=== PATIENT | female | born 1965 | race American Indian/Alaskan Native ===

== ENCOUNTER 2017-05-26 16:38 | Emergency (ER) | payer OTHER, MEDICAID ==
[2017-05-26 16:43] VITALS: RESP 18; TEMP 98.8
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
--- NOTE | 2017-05-26 17:49 | RAD ---
PROCEDURE: Cervical Spine Radiographs. HISTORY: Pain. COMPARISON: CT cervical spine from 07/23/2016 FINDINGS: BONES: There is normal alignment of the cervical vertebral bodies. Cervical lordosis is maintained. There is no acute fracture. The craniocervical junction is normal. The atlantoaxial joint is normal. DISC SPACES: Status post ACDF at C5-6 and C6-7. There is stable appearance of metallic screws and disc markers. SOFT TISSUES: Normal. No prevertebral soft tissue swelling. OTHER FINDINGS: None. IMPRESSION: Status post ACDF at C5-6 and C6-7, stable appearance of hardware and radiopaque disc markers. No acute findings.
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
[2017-05-26 18:14] VITALS: BP 124/76; PULSE 88
[2017-05-26 18:27] VITALS: O2SAT 100
== END 2017-05-26 18:14 | disposition home or self-care (01) ==
LOC: C.ER 16:38
DX: M54.89 Other dorsalgia (principal); V89.2XXA Person injured in unspecified motor-vehicle accident, traffic, initial encounter

== ENCOUNTER 2017-06-27 11:56 | Emergency (ER) | payer OTHER, MEDICAID ==
[2017-06-27 12:14] VITALS: BP 113/72; PULSE 62; RESP 18; TEMP 98.4; O2SAT 99
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
[2017-06-27] MEDS ORDERED: Oxycodone/Acetaminophen 5/325 mg Tab PO STA (12:40)
[2017-06-27] MEDS ORDERED: Oxycodone/Acetaminophen 5/325 mg Tab ONE (12:45)
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
== END 2017-06-27 15:16 | disposition home or self-care (01) ==
LOC: C.ER 11:56
DX: M54.5 Low back pain (principal)

== ENCOUNTER 2017-09-19 11:33 | Emergency (ER) | payer MEDICAID, OTHER ==
[2017-09-19 11:43] VITALS: BMI 21.5
[2017-09-19 11:48] VITALS: RESP 18; O2SAT 98
[2017-09-19] MEDS ORDERED: Lidocaine 5% Patch TD STA (12:15)
[2017-09-19] MEDS ORDERED: Lidocaine 5% Patch TD ONE (12:38)
--- NOTE | 2017-09-19 13:35 | C.PDOC ---
History Of Present Illness 52 year old female, whose PMHx includes back problems and PSHx includes spinal surgeries, presents to the ED for evaluation of upper back pain which began earlier today. Patient states she was at a doctor's office and was sitting down for a long period of time. Patient notes she often experiences similar back pain after sitting for a prolonged period of time. Patient denies fever, chills , headache, neck pain, extremity numbness/weakness, or direct trauma/injury to the affected area. Time Seen by Provider: 09/19/17 12:01 Chief Complaint (Nursing): Back Pain History Per: Patient History/Exam Limitations: no limitations Onset/Duration Of Symptoms: Hrs Current Symptoms Are (Timing): Still Present Quality Of Discomfort: "Pain" Previous Symptoms: Back Pain. denies: Neck Pain Associated Symptoms: denies: Incontinence, New Weakness, New Numbness Additional History Per: Patient Past Medical History Reviewed: Historical Data, Nursing Documentation, Vital Signs Vital Signs: Last Vital Signs Temp 97.6 F 09/19/17 13:39 Pulse 60 09/19/17 13:39 Resp 18 09/19/17 13:39 BP 109/75 09/19/17 13:39 Pulse Ox 98 09/19/17 14:04 - Medical History PMH: Back Problems Surgical History: Back Surgery Family History: States: Unknown Family Hx - Social History Hx Tobacco Use: Yes Hx Alcohol Use: No Hx Substance Use: No - Immunization History Hx Tetanus Toxoid Vaccination: No Hx Influenza Vaccination: No Hx Pneumococcal Vaccination: No Review Of Systems Constitutional: Negative for: Fever, Chills Musculoskeletal: Positive for: Back Pain (upper ). Negative for: Neck Pain Neurological: Negative for: Weakness, Numbness, Headache Physical Exam - Physical Exam Appears: Non-toxic, No Acute Distress Skin: Normal Color, Warm, Dry Neck: Normal ROM, No Midline Cervical Tenderness, No Paracervical Tenderness, Supple Back: No Vertebral Tenderness Extremity: Normal ROM, Tenderness (to bilateral shoulders on palpation ), Capillary Refill (less than 2 seconds ) Neurological/Psych: Oriented x3, Normal Speech, Normal Cognition Gait: Steady ED Course And Treatment O2 Sat by Pulse Oximetry: 98 (on RA) Pulse Ox Interpretation: Normal Medical Decision Making Medical Decision Making: Progress: Lidoderm TD, Flexeril PO, and Tylenol PO administered. pt reports feeling much better, appears much more comfortable, will d/c Disposition Counseled Patient/Family Regarding: Diagnosis, Need For Followup, Rx Given - Disposition Disposition: HOME/ ROUTINE Disposition Time: 13:32 Condition: IMPROVED Additional Instructions: Please use muscle relaxants every 8 hours if needed for spasm; they make you drowsy so no driving or operating machinery when using them. You may apply a patch to painful area for 12 hours at a time, then remove for 12 hours before applying a new patch. FOllow up with your doctor and pain manage ment in a few days. Prescriptions: Cyclobenzaprine [Cyclobenzaprine HCl] 10 mg PO Q8 #9 tab Lidocaine 5% [Lidoderm] 1 ea TD DAILY #6 patch Instructions: Muscle Spasm (ED) Forms: [facility] ([place]), General Discharge Instructions - Clinical Impression Clinical Impression: Muscle spasm of back - PA / GENERAL CONTRACTOR / Resident Statement MD/DO has reviewed & agrees with the documentation as recorded. - Scribe Statement The provider has reviewed the documentation as recorded by the Scribe (Eva Camilo) All medical record entries made by the Scribe were at my direction and personally dictated by me. I have reviewed the chart and agree that the record accurately reflects my personal performance of the history, physical exam, medical decision making, and the department course for this patient. I have also personally directed, reviewed, and agree with the discharge instructions and disposition.
[2017-09-19 13:40] VITALS: BP 109/75; PULSE 60; TEMP 97.6
== END 2017-09-19 13:44 | disposition home or self-care (01) ==
LOC: C.ER 11:33
DX: M62.830 Muscle spasm of back (principal)

== ENCOUNTER 2018-06-01 11:50 | Emergency (ER) | payer MEDICAID ==
[2018-06-01 11:50] VITALS: BMI 21.5
[2018-06-01 11:58] VITALS: BP 102/68; PULSE 70; RESP 18; TEMP 98.7
--- NOTE | 2018-06-01 12:23 | C.PDOC ---
History Of Present Illness 52 year old female presents to the emergency department with complaints of left- sided rib pain persisting for the last five days. Patient reports that the pain started after her physical therapy session, in which she states her physical therapist performed a "maneuver" on her back. Patient states that her pain is worse with movement, deep breathing, and coughing. Patient denies shortness of breath, hemoptysis, abdominal pain, nausea, and vomiting. Time Seen by Provider: 06/01/18 12:07 Chief Complaint (Nursing): Rib Injury History Per: Patient History/Exam Limitations: no limitations Onset/Duration Of Symptoms: Days (5) Current Symptoms Are (Timing): Still Present Past Medical History Reviewed: Historical Data, Nursing Documentation, Vital Signs Vital Signs: Last Vital Signs Temp 98.7 F 06/01/18 11:55 Pulse 70 06/01/18 11:55 Resp 18 06/01/18 13:06 BP 102/68 06/01/18 11:55 Pulse Ox 99 06/01/18 14:23 - Medical History PMH: Back Problems Surgical History: Back Surgery Family History: States: No Known Family Hx - Social History Hx Tobacco Use: Yes Hx Alcohol Use: No Hx Substance Use: No - Immunization History Hx Tetanus Toxoid Vaccination: No Hx Influenza Vaccination: No Hx Pneumococcal Vaccination: No Review Of Systems Constitutional: Negative for: Fever, Chills Cardiovascular: Negative for: Chest Pain Respiratory: Negative for: Cough, Shortness of Breath, Hemoptysis Gastrointestinal: Negative for: Nausea, Vomiting, Abdominal Pain Musculoskeletal: Positive for: Other (rib pain) Neurological: Negative for: Weakness, Numbness Physical Exam - Physical Exam Appears: Non-toxic, No Acute Distress Skin: Warm, Dry, No Rash Head: Atraumatic, Normacephalic Eye(s): bilateral: Normal Inspection, PERRL, EOMI Nose: Normal Neck: Normal, Supple Chest: Symmetrical, No Deformity, Tenderness (moderate tenderness to the lateral and anterior left ribs at the 9th and 10th rib area.) Cardiovascular: Rhythm Regular, No Murmur Respiratory: Normal Breath Sounds, No Rales, No Rhonchi, No Wheezing Gastrointestinal/Abdominal: Normal Exam, Soft, No Tenderness, No Guarding, No Rebound Extremity: Normal ROM, No Tenderness Neurological/Psych: Oriented x3, Normal Speech, Normal Cognition, Other (no focal deficits) Gait: Steady ED Course And Treatment O2 Sat by Pulse Oximetry: 99 (RA) Pulse Ox Interpretation: Normal - Other Rad Rib series X-Ray: Interpreted by Me Interpretation: No PTX, no fracture, NAD Progress Note: Plan: XR Ribs and Left Chest Medical Decision Making Medical Decision Making: On re-exam, the patient is resting comfortably. Lungs remains CTA, heart is RRR , abdomen is soft, non-tender and tolerating PO well. Ambulatory in the ED with steady gait. Follow up with the medical doctor within 1-2 days, Return if worsened. Disposition - Disposition Referrals: Sander Lindsey, DNP, S[employer]W OPERATOR [Advanced Practice Nurse] - Disposition: HOME/ ROUTINE Disposition Time: 12:53 Condition: GOOD Additional Instructions: Follow up with the medical doctor within 1-2 days, Return if worsened. Prescriptions: Acetaminophen [Tylenol] 325 mg PO Q6 PRN #30 tab PRN Reason: Pain, Mild (1-3) Cyclobenzaprine [Flexeril] 5 mg PO TID #21 tab Lidocaine 5% [Lidoderm] 1 each TP DAILY #10 patch Instructions: Bruised Rib (DC) Forms: [employer] (I[place]ic) - Clinical Impression Clinical Impression: Rib contusion - PA / [employer] / Resident Statement MD/DO has reviewed & agrees with the documentation as recorded. - Scribe Statement The provider has reviewed the documentation as recorded by the Scribe (Segundo Flower) All medical record entries made by the Scribe were at my direction and personally dictated by me. I have reviewed the chart and agree that the record accurately reflects my personal performance of the history, physical exam, medical decision making, and the department course for this patient. I have also personally directed, reviewed, and agree with the discharge instructions and disposition.
[2018-06-01] MEDS ORDERED: Lidocaine 5% Patch TD STA (12:37)
[2018-06-01] MEDS ORDERED: Lidocaine 5% Patch TD ONE (12:48)
[2018-06-01 13:09] VITALS: O2SAT 99
--- NOTE | 2018-06-01 15:57 | RAD ---
PROCEDURE: Radiographs of the Chest and Left Ribs. HISTORY: rib pain, pleuritic pain COMPARISON: 05/26/2017.. TECHNIQUE: Frontal radiograph of the chest and multiple oblique radiographs of the left ribs were obtained. FINDINGS: LEFT RIBS: No fracture or focal lesion visualized. LUNGS: Clear. PLEURA: No pneumothorax or pleural fluid. CARDIOVASCULAR: Normal sized heart. No pulmonary vascular congestion. OTHER FINDINGS: None. IMPRESSION: Unremarkable radiographs of the chest and left ribs. No left rib fracture.
--- NOTE | 2018-06-02 21:26 | CARD ---
APPROVED REPORT EKG Measurement Heart [id number] MA [id number] <Conclusion> Sinus bradycardia Otherwise normal ECG
== END 2018-06-01 13:06 | disposition home or self-care (01) ==
LOC: C.ER 11:50
DX: S20.212A Contusion of left front wall of thorax, initial encounter (principal); X58.XXXA Exposure to other specified factors, initial encounter